=== PATIENT | male | born 1975 | race African-American/Black ===

== ENCOUNTER 2025-01-29 20:09 | Emergency (ER) | payer BC, OTHER ==
[2025-01-29 20:20] VITALS: TEMP 97.9; BMI 32.8
[2025-01-29] MEDS ORDERED: KETOROLAC TROMETHAMINE 30 MG/1 ML VIAL ONE (21:02)
[2025-01-29] MEDS ORDERED: LIDOCAINE 5% TOPICAL PATCH ONE (21:02)
[2025-01-29] MEDS: LIDOCAINE 5% TOPICAL PATCH TP ONE (21:23)
[2025-01-29] MEDS: KETOROLAC TROMETHAMINE 30 MG/1 ML VIAL IVPUSH ONE (21:24)
[2025-01-29] MEDS ORDERED: TAMSULOSIN HCL 0.4 MG CAP ONE (21:25)
[2025-01-29 21:27] LABS: ABSOLUTE IMMATURE GRANULOCYTES 0.02 x10^3/uL (0.0-0.031); BASOPHILS # 0.06 x10^3/uL (0.01-0.08); EOSINOPHIL % 0.4 % (0.8-7.0); EOSINOPHILS # 0.03 x10^3/uL (0.04-0.54); HEMATOCRIT 43.7 % (40.1-51.0); MEAN PLT VOLUME 9.8 fl (9.4-12.4); MONOCYTE # 0.81 x10^3/uL (0.30-0.82); MONOCYTE % 9.6 % (5.3-12.2); PLATELET COUNT 235 x10^3/uL (163-337); RDW 13.4 % (12.1-15.9)
[2025-01-29 21:28] LABS: EPI CELLS 13 /uL (0-25.1); HYALINE CASTS 0 /uL (0-3.1); URINE APPEARANCE CLEAR; URINE BACTERIA 11 /uL (0-1359); URINE BILIRUBIN NEGATIVE (NEGATIVE); URINE COLOR YELLOW; URINE GLUCOSE (UA) NEGATIVE (NEGATIVE); URINE KETONE TRACE (NEGATIVE); URINE LEUK ESTERASE NEGATIVE (NEGATIVE); URINE NITRITE NEGATIVE (NEGATIVE); URINE PROTEIN NEGATIVE (NEGATIVE); URINE RBC 495 /uL (0-23.9); URINE WBC 7 /uL (0-25.8)
[2025-01-29] MEDS: LACTATED RINGERS SOLUTION 1000 ML INFUS.BAG IV ONE (21:29)
[2025-01-29] MEDS: TAMSULOSIN HCL 0.4 MG CAP PO ONE (21:30)
[2025-01-29 21:59] LABS: POTASSIUM 4.4 mmol/L (3.5-5.1)
[2025-01-29 22:01] LABS: CALCIUM 9.9 mg/dL (8.5-10.1)
[2025-01-29 22:02] LABS: ALBUMIN 3.3 g/dl (3.4-5.0); BLOOD UREA NITROGEN 17.3 mg/dL (7-18)
[2025-01-29 22:05] LABS: CREATININE 1.4 mg/dL (0.55-1.3)
[2025-01-29 22:06] LABS: BILIRUBIN,TOTAL 0.6 mg/dL (0.2-1); TOT PROT 6.9 g/dl (6.4-8.2)
[2025-01-29 22:55] VITALS: BP 125/80; PULSE 78; RESP 19
[2025-01-30] MEDS ORDERED: LIDOCAINE PATCH REMOVAL MC ONE (09:00)
== END 2025-01-29 22:55 | disposition home or self-care (01) ==
LOC: JER 20:09
PROC: 3E0333Z Introduction of Anti-inflammatory into Peripheral Vein, Percutaneous Approach (ICD-10-PCS; principal; 2025-01-29)
DX: R10.9 Unspecified abdominal pain (principal); R35.0 Frequency of micturition; R30.0 Dysuria; R39.15 Urgency of urination; R39.11 Hesitancy of micturition; R68.83 Chills (without fever)
CPT/HCPCS: 36415; 76775-TC; 80053; 81003; 85025; 87086; 99285-25